=== PATIENT | male | born 1985 | race Two or more races ===

== ENCOUNTER 2023-12-14 11:26 | Emergency (ER) | payer MEDICAID ==
[~2023-12-14] VITALS: Ht 182.9 cm; Wt 86.5 kg
[2023-12-14 11:53] LABS: Basophils # (auto) 0 10 ^3/uL (0-0.2); Basophils % (auto) 0.2 % (0.0-2.0); Eosinophils # (auto) 0 10 ^3/uL (0-0.8); Eosinophils % (auto) 0.2 % (0.0-7.0); Hemoglobin 14.8 g/dL (13.5-17.5); Lymphocytes # (auto) 0.6 10 ^3/uL (0.4-5.4); Lymphocytes % (auto) 8.5 % (10.0-50.0); Mean Corpuscular Hemoglobin 32.2 pg (28.0-32.0); Mean Corpuscular Hgb Conc. 33.7 g/dL (32.0-36.0); Mean Corpuscular Volume 95.4 fL (80.0-100.0); Monocytes # (auto) 0.3 10 ^3/uL (0-1.3); Monocytes % (auto) 3.6 % (0.0-12.0); Neutrophils # (auto) 6.6 10 ^3/uL (1.6-8.6); Neutrophils % (auto) 87.5 % (37.0-80.0); Red Blood Cells 4.61 10^6/uL (4.5-5.90); Red Cell Distribution Width 13.3 % (11.8-14.3); White Blood Cell 7.6 10^3/uL (4.4-10.8)
[2023-12-14] MEDS ORDERED: LISI-275 PO (11:58)
[2023-12-14] MEDS: cloNIDine HCL 0.1 MG TAB PO ONE (12:04)
[2023-12-14 12:05] LABS: Chloride 103 mmol/L (98-107); Potassium 4.2 mmol/L (3.5-5.1); Sodium 134 mmol/L (136-145)
[2023-12-14 12:06] LABS: Anion Gap 10 (5-15); Calcium 9.5 mg/dL (8.7-10.4); Carbon Dioxide 21 mmol/L (20-30)
[2023-12-14 12:11] LABS: BUN/Creatinine Ratio 7.1 (10.0-20.0); Blood Urea Nitrogen 5 mg/dL (9-23); Glucose 87 mg/dL (74-106)
[2023-12-14] MEDS: amLODIPine BESYLATE 5 MG TAB PO ONE (13:04)
[2023-12-14 13:47] VITALS: BP 154/111; PULSE 84; RESP 16; TEMP 97.9; O2SAT 98
== END 2023-12-14 13:48 | disposition home or self-care (01) ==
LOC: EDBD 11:26 → ER 11:26
DX: I10 Essential (primary) hypertension (principal)
CPT/HCPCS: 36415; 80048; 85025; 93005

== ENCOUNTER 2023-12-21 16:20 | Emergency (ER) | payer MEDICAID ==
[~2023-12-21] VITALS: Ht 182.9 cm; Wt 86.3 kg
[~2023-12-21 16:20] MED LIST: LISI-275 PO
[2023-12-21] MEDS: KETOROLAC TROMETH 30 MG/ML 1ML VIAL IV ONE (17:15)
[2023-12-21] MEDS: ONDANSETRON HCL 4 MG/2 ML VIAL IV ONE (17:15)
[2023-12-21 18:28] LABS: Basophils # (auto) 0 10 ^3/uL (0-0.2); Basophils % (auto) 0.3 % (0.0-2.0); Eosinophils # (auto) 0 10 ^3/uL (0-0.8); Eosinophils % (auto) 0.1 % (0.0-7.0); Hematocrit 34.9 % (41.0-53.0); Hemoglobin 11.5 g/dL (13.5-17.5); Lymphocytes # (auto) 1.2 10 ^3/uL (0.4-5.4); Lymphocytes % (auto) 7.6 % (10.0-50.0); Mean Corpuscular Hemoglobin 31.2 pg (28.0-32.0); Mean Corpuscular Hgb Conc. 33.1 g/dL (32.0-36.0); Mean Corpuscular Volume 94.4 fL (80.0-100.0); Monocytes # (auto) 0.8 10 ^3/uL (0-1.3); Monocytes % (auto) 5.2 % (0.0-12.0); Neutrophils # (auto) 13.9 10 ^3/uL (1.6-8.6); Neutrophils % (auto) 86.8 % (37.0-80.0); Nucleated Red Blood Cells % 0.1 %; Red Blood Cells 3.69 10^6/uL (4.5-5.90); White Blood Cell 15.9 10^3/uL (4.4-10.8)
[2023-12-21 18:34] LABS: Alanine Aminotransferase 118 U/L (7-40); Albumin 4.3 g/dL (3.2-4.8); Alkaline Phosphatase 102 U/L (46-116); Anion Gap 7 (5-15); Aspartate Aminotransferase 42 U/L (13-40); BUN/Creatinine Ratio 37.6 (10.0-20.0); Blood Urea Nitrogen 32 mg/dL (9-23); Calcium 9.3 mg/dL (8.7-10.4); Carbon Dioxide 26 mmol/L (20-30); Chloride 101 mmol/L (98-107); Glucose 121 mg/dL (74-106); Lipase 30 U/L (12-53); Potassium 4.1 mmol/L (3.5-5.1); Sodium 134 mmol/L (136-145)
[2023-12-21 18:35] LABS: Bilirubin, Total 0.5 mg/dL (0.2-1.0); Total Protein 6.8 g/dL (5.7-8.2)
[2023-12-21 18:47] LABS: Lactic Acid w/Reflex 2.2 mmol/L (0.4-2.0)
[2023-12-21] MEDS: SODIUM CHLORIDE 0.9% 1,000 ML IV ONE (19:00)
[2023-12-21 23:37] LABS: Urine Bacteria NONE SEEN /hpf (None Seen); Urine Blood Negative /uL (Negative); Urine Clarity HAZY (Clear); Urine Color Yellow (Yellow); Urine Mucus FEW (None Seen); Urine Protein, UAD TRACE (Negative); Urine Specific Gravity 1.022 (1.001-1.035); Urine Urobilinogen Normal (Negative); Urine WBC 3 /hpf (0 - 3); Urine pH 5.5 (5.0-8.0)
[2023-12-21 23:39] LABS: Urine Hyaline Cast FEW /lpf (0 - 2)
[2023-12-22] MEDS ORDERED: METR-344 PO (01:43)
[2023-12-22] MEDS ORDERED: ACE3T PO (01:44)
[2023-12-22] MEDS ORDERED: METO-281 PO (01:44)
[2023-12-22] MEDS ORDERED: ZOFR4T PO (01:44)
[2023-12-22] MEDS ORDERED: DICY10CA PO (01:44)
[2023-12-22] MEDS: DICYCLOMINE HCL (10MG/ML) 2 ML AMPULE IM ONE (05:06)
[2023-12-22] MEDS: metroNIDAZOLE 500 MG TAB PO ONE (05:07)
[2023-12-22] MEDS: HYDROmorphone HCL 2 MG/ML VL/or syr IM ONE (05:07)
[2023-12-22 07:22] VITALS: BP 140/91; TEMP 98.1
[2023-12-22 07:23] VITALS: PULSE 126; RESP 20; O2SAT 100
== END 2023-12-22 07:36 | disposition left against medical advice (07) ==
LOC: ER 16:20 → EDBD 16:20 → EDUNIT# 16:20 → ER 12-22 07:36
DX: K29.60 Other gastritis without bleeding (principal); B96.89 Other specified bacterial agents as the cause of diseases classified elsewhere; Z79.899 Other long term (current) drug therapy
CPT/HCPCS: 36415; 71250; 74176; 80053; 81001; 83605; 83690; 85025; 96360; 96372; 99285; J0500; J1170; J7030